=== PATIENT | female | born 1975 | race Caucasian/White ===

== ENCOUNTER → 2016-10-12 | Outpatient (CLI) | payer OTHER ==
--- NOTE | 2016-10-12 16:48 | DX ---
PA and Lateral Chest October 12, 2016 Indication: Pain. Cough. Comparison: None. Findings: The lungs are well aerated and clear. No pneumothorax, consolidation, or effusion. No ai rspace consolidation, edema, or effusion. The heart size is normal. Minimal pectus excavatum result s in subtle indistinctness of the right heart border. Impression: Clear lungs. No pneumonia.
== END ==
LOC: FIMAGING 14:18
PROVIDERS: ATTEND Family Medicine
DX: R05 Cough (principal); M54.6 Pain in thoracic spine

== ENCOUNTER → 2017-01-22 | Outpatient (CLI) | payer OTHER | LOC: FIMAGING 15:10 | DX: Z12.31 Encounter for screening mammogram for malignant neoplasm of breast (principal) | CPT/HCPCS: G0202 ==